=== PATIENT | male | born 1930 | race Caucasian/White ===

== ENCOUNTER 2016-07-15 15:07 | Emergency (ER) | payer OTHER ==
[2016-07-15 15:18] VITALS: BP 171/62; PULSE 56; RESP 16; TEMP 97.7; O2SAT 96
--- NOTE | 2016-07-15 15:30 | EDPHY ---
H & P Stated Complaint: tripped on sidewalk; lac to L leg;denies other injuries;on Plavix Time Seen by Provider: 07/15/16 15:36 HPI/ROS: CHIEF COMPLAINT: Fall, right leg injury HISTORY OF PRESENT ILLNESS: This patient is an 85 year old male who presents to the Emergency Department via private vehicle with a right lower leg injury following a mechanical fall this afternoon. He reports that he tripped on the [place], falling forward. He denies trauma to his head, neck, or back. Upon arrival, his only complaint is of an abrasion to his right rosario. He was able to bear weight appropriately on his right leg. He denies additional injuries. He has a history of atrial fibrillation for which he previously took Coumadin but reports that he stopped this medication 3-4 weeks ago following a Watchman procedure and now takes only Plavix and Aspirin. REVIEW OF SYSTEMS: A ten point review of systems was performed and is negative with the exception of the items mentioned in the HPI. Source: Patient, Family Exam Limitations: No limitations - Personal History Current Tetanus Diphtheria and Acellular Pertussis (TDAP): Yes - Medical/Surgical History PMH: 1. Atrial fibrillation (Plavix, Aspirin) - Watchman device implanted 1-2 months [employer] 2. Chronic knee pain 3. Hypertension Hx Cardiac Disease: Yes Other PMH: afib. HTN - Social History Smoking Status: Former smoker Additional Social History: Retired. Lives in [place]. Visiting family. Former smoker. - Physical Exam Exam: General Appearance: Alert. Vital signs reviewed. Blood pressure 171/62, heart rate 56. Head: Atraumatic. Eyes: Pupils equal and round, no conjunctival injection, no discharge. Anicteric. ENT, Mouth: Mucous membranes are moist, no oropharyngeal erythema or edema. Neck: Nontender to palpation over the midline and no pain with active range of motion of his neck. Respiratory: Lungs are clear to auscultation; no wheezes, rales, or rhonchi. Cardiovascular: Regular rate and rhythm; no murmur, rub, or gallop. Gastrointestinal: Abdomen is soft and nontender, no masses or organomegaly, bowel sounds normal. Skin: Warm and dry, no rashes on exposed skin, normal color. Scattered bruises on all 4 extremities. 3cm x 1cm skin tear to his right rosario, actively bleeding. No long bone tenderness. Back: Nontender to palpation over the thoracolumbar spine. Extremities: Mild lower extremity edema, at baseline per family. Full ROM to right lower extremity without pain. 5/5 lower extremity strength testing of both legs. Sensation is intact to light touch. Neurological: Alert and oriented. Moving all four extremities easily and equally. Psychiatric: Normal affect. Constitutional: Initial Vital Signs Temperature (C) 36.5 C 07/15/16 15:10 Heart Rate 56 L 07/15/16 15:10 Respiratory Rate 16 07/15/16 15:10 Blood Pressure 171/62 H 07/15/16 15:10 O2 Sat (%) 96 07/15/16 15:10 O2 Delivery Mode Room Air Allergies/Adverse Reactions: No Known Allergies Allergy (Unverified 07/15/16 15:18) Home Medications: Medication Instructions Recorded Amiodarone HCl [Pacerone (*)] 200 mg PO 07/15/16 Aspirin [Aspirin 81mg (*)] 81 mg PO DAILY 07/15/16 Clopidogrel Bisulfate [Plavix (*)] 75 mg PO DAILY 07/15/16 LEVOTHYROXINE SODIUM [Tirosint 50 mcg PO 07/15/16 50mcg] Memantine HCl [Namenda 5 mg (*)] 5 mg PO 07/15/16 Metoprolol Succinate Xr [Toprol Xl 25 mg PO DAILY 07/15/16 25 mg (*)] Simvastatin [Zocor] 20 mg PO 07/15/16 Medical Decision Making ED Course/Re-evaluation: This 85-year-old male presents following a mechanical fall this afternoon. He has a history of a fib and is currently taking Plavix and aspirin only for this. He denies head trauma and head is atraumatic on exam. There are no focal neurological findings on exam. He has no apparent injuries apart from a 3cm x 1cm skin tear to the anterior aspect of his right lower leg. Will proceed with wound care. The patient tolerated wound cleaning procedure well. I discussed return precautions with him. He will be discharged home in good condition. Differential Diagnosis: I considered a differential diagnosis that includes but is not limited to skin tear, laceration, contusion, fracture, and sprain. I also considered concussion intracranial hemorrhage. I do not believe that he has a head injury. - Data Points Medications Given: Discontinued Medications Tetracaine/Epinephrine/Lidocaine (Let Gel Topical) 1 ea TP EDNOW ONE Stop: 07/15/16 15:39 Last Admin: 07/15/16 15:53 Dose: 1 ea Departure - Departure Disposition: Home, Routine, Self-Care Clinical Impression: Skin tear of right lower leg without complication Qualifiers: Encounter type: initial encounter Qualified Code(s): S81.811A - Laceration without foreign body, right lower leg, initial encounter Condition: Good Instructions: Skin Tear (ED) Additional Instructions: 1. Keep your wound clean and dry. You may shower, but do not submerge your leg in water for extended time (bathing, swimming, etc.) until your wound has healed entirely. 2. Return to the Emergency Department if you experience increased swelling or severe pain to the site of your injury, discharge from your wound, red streaking down your leg, or for other serious concerns. Referrals: ELAYNE ROSS [Other] - As per Instructions Report Scribed for: Sally Don Report Scribed by: Candi Reinoso Date of Report: 07/15/16 Time of Report: 15:31 Physician Review and Approval Statement: 07/15/16 15:29 Portions of this note were transcribed by the medical staff specialist. I, Dr. Sally Don, personally performed the history, physical exam, and medical decision- making; and confirmed the accuracy of the information in the transcribed note.
[2016-07-15] MEDS ORDERED: LET GEL TOPICAL 1 EA SYR TP ONE (15:38)
== END 2016-07-15 16:36 | disposition home or self-care (01) ==
DX: S81.811A Laceration without foreign body, right lower leg, initial encounter (principal); I10 Essential (primary) hypertension; Z87.891 Personal history of nicotine dependence; Z79.82 Long term (current) use of aspirin; W01.0XXA Fall on same level from slipping, tripping and stumbling without subsequent striking against object, initial encounter; Y92.89 Other specified places as the place of occurrence of the external cause; Y99.8 Other external cause status